=== PATIENT | male | born 1990 | race Caucasian/White ===

== ENCOUNTER 2016-10-27 00:52 | Emergency (ER) | payer OTHER ==
[~2016-10-27 00:52] MED LIST: ANUSOL-HC SUPP25 M1 PR; COLACE PO; KEPPRA1000 MG PO
[2016-10-27 01:21] LABS: URINE SOURCE CLEAN CATCH
[2016-10-27 01:22] LABS: URINE APPEARANCE CLEAR; URINE BILIRUBIN NEG (NEG); URINE BLOOD NEG (NEG); URINE COLOR YELLOW; URINE GLUCOSE NEG (NORM); URINE KETONE NEG (NEG); URINE LEUKOCYTE ESTERASE NEG (NEG); URINE NITRATE NEG (NEG); URINE PH 5.5 (5-8); URINE PROTEIN NEG (NEG); URINE SPECIFIC GRAVITY 1.025 (1.003-1.035); URINE UROBILINOGEN 0.2 MG/DL (NORM)
[2016-10-27 01:23] LABS: MICRO INDICATED? NO
[2016-10-28 23:05] LABS: CHLAMYDIA TRACH Not Detected (Not Detected); N GONOR Not Detected (Not Detected)
== END 2016-10-27 01:37 | disposition home or self-care (01) ==
LOC: SED 00:52
PROVIDERS: Emergency Medicine
DX: L29.3 Anogenital pruritus, unspecified (principal); R56.9 Unspecified convulsions
CPT/HCPCS: 81003; 87491; 87591; 99282